=== PATIENT | female | born 1950 | race Caucasian/White ===

== ENCOUNTER → 2024-10-06 09:34 | Outpatient (REF) | payer MEDICARE, SELFPAY | LOC: HWRAD 09:34 | PROVIDERS: ATTENDING PHYSICIAN Nurse Practitioner Adult Health; FAMILY PHYSICIAN Internal Medicine | DX: N76.4 Abscess of vulva (principal) | CPT/HCPCS: 76856 ==

== ENCOUNTER → 2024-10-14 11:16 | Outpatient (REF) | payer MEDICARE, SELFPAY | LOC: WDC 11:16 | PROVIDERS: ATTENDING PHYSICIAN Internal Medicine | DX: Z12.31 Encounter for screening mammogram for malignant neoplasm of breast (principal) | CPT/HCPCS: 77063; 77067 ==

== ENCOUNTER → 2025-04-03 13:17 | Outpatient (REF) | payer MEDICARE, SELFPAY ==
[2025-04-03 14:40] LABS: Hematocrit 46.1 % (37.0-47.0); Hemoglobin 15.1 g/dL (12.0-16.0); Mean Corp Hgb Conc. 32.8 g/dL (33.0-37.0); Mean Corpuscular Volume 94.9 fL (81.0-99.0); Platelet Count 258 10^3/uL (130-400); Red Cell Dist. Width 13.6 % (11.5-14.5)
== END ==
LOC: SDSPAT 13:17
PROVIDERS: ATTENDING PHYSICIAN Obstetrics & Gynecology Gynecology; FAMILY PHYSICIAN Internal Medicine
DX: Z01.818 Encounter for other preprocedural examination (principal)
CPT/HCPCS: 36415; 85027; 93005

== ENCOUNTER 2025-04-14 06:11 | Day surgery (SDC) | payer MEDICARE, SELFPAY ==
[2025-04-03 14:12] VITALS: BMI 44.7
[2025-04-14] VITALS (7 sets, daily range): BP systolic 126–167; BP diastolic 66–94; BMI 44.7
[2025-04-14] MEDS: NORMOSOL-R/PLASMALYTE-A 1000 IV (07:20)
== END 2025-04-14 10:00 | disposition home or self-care (01) ==
LOC: SDS 06:11
PROVIDERS: ATTENDING PHYSICIAN Obstetrics & Gynecology Gynecology; FAMILY PHYSICIAN Internal Medicine
DX: N84.0 Polyp of corpus uteri (principal); R93.89 Abnormal findings on diagnostic imaging of other specified body structures
CPT/HCPCS: 58558; 88305